=== PATIENT | female | born 1945 | race Caucasian/White ===

== ENCOUNTER → 2016-11-22 | Outpatient (CLI) | payer OTHER, MEDICARE | LOC: BMCIMAGING 09:28 | PROVIDERS: ATTEND Orthopaedic Surgery | DX: M25.552 Pain in left hip (principal) ==

== ENCOUNTER → 2017-01-10 | Outpatient (CLI) | payer OTHER, MEDICARE | LOC: FIMAGING 10:43 | PROVIDERS: ATTEND Family Medicine | DX: Z13.820 Encounter for screening for osteoporosis (principal) ==

== ENCOUNTER → 2017-03-07 | Outpatient (CLI) | payer OTHER, MEDICARE | LOC: BMCIMAGING 09:24 | PROVIDERS: ATTEND Orthopaedic Surgery | DX: M25.552 Pain in left hip (principal) ==

== ENCOUNTER → 2017-04-27 | Outpatient (CLI) | payer OTHER, MEDICARE | LOC: BMCIMAGING 10:34 | PROVIDERS: ATTEND Physician Assistant | DX: Z01.818 Encounter for other preprocedural examination (principal) ==

== ENCOUNTER → 2017-05-09 | Outpatient (CLI) | payer OTHER, MEDICARE | LOC: FIMAGING 10:12 | PROVIDERS: ATTEND Orthopaedic Surgery | DX: Z01.818 Encounter for other preprocedural examination (principal); M16.12 Unilateral primary osteoarthritis, left hip ==

== ENCOUNTER 2017-05-14 07:35 | Inpatient (IN) | payer OTHER, MEDICARE ==
--- NOTE | 2017-05-14 06:52 | PDHPUP ---
History & Physical Update H&P update statement: This history and physical update is based on an assessment of the patient which was completed after admission or registration (within 24 hours), but prior to the surgery/procedure.
--- NOTE | 2017-05-14 06:53 | PDIAF ---
- Diagnosis Diagnosis: left hip djd Code Status: Full Code - Medication Management Discharge Medications: Medications to Continue on Transfer Aspirin [Aspirin 81mg (*)] 81 mg PO DAILY 04/05/16 [Last Taken 04/06/16] Levothyroxine [Synthroid 100 mcg (*)] 100 mcg PO DAILY 04/05/16 [Last Taken 07:00] Melatonin [Melatonin 5 mg] 5 mg PO HS 04/05/16 [Last Taken 04/09/16 21:00] Multivitamins [Multivitamin (*)] 1 each PO DAILY 04/05/16 [Last Taken 04/07/16] amLODIPine BESYLATE [Amlodipine Besylate] 10 mg PO DAILY 04/05/16 [Last Taken 07:00] Ibuprofen [Motrin (*)] 600 mg PO BID #0 04/07/16 [Last Taken 04/06/16] [place]-3 Fatty Acids [Fish Oil 1000 mg (*)] 1,000 mg PO DAILY #0 04/07/16 [Last Taken 04/07/16] Diazepam [Valium 5 MG (*)] 2.5 mg PO DAILY PRN 04/11/17 [Last Taken Unknown] Herbals/Supplements -Info Only 1 ea PO DAILY 04/11/17 [Last Taken Unknown] Simvastatin [Zocor] 20 mg PO DAILY 04/11/17 [Last Taken Unknown] Cholecalciferol Vit D3 [Vitamin D3 2000 units tab (OTC)] 2,000 units PO DAILY [Last Taken Unknown] Discharge Medications: Refer to the Discharge Home Medication list for PRN reason. - Orders Services needed: Physical Therapy Activity/Weight Bearing Restrictions: wbat. anterior hip precautions. daily dressing changes. may shower without bandage. no soaking or immersion. alvaro hose x 2 weeks. f/u at two weeks. seek attn for increasing redness, drainage or discharge. aspirin 325 mg po daily - Follow Up Care Current Providers and Referrals: Mehnaz Mar MD [Primary Care Provider] -
[~2017-05-14 07:35] MED LIST: ROPIVACAINE 0.2% 80 MG, EPINEPHrine 0.2 MG, morphINE 10 MG in BAG 0 ML IU ONE; TRANEXAMIC ACID 1,250 MG in NS 100 ML IV ONE; TRANEXAMIC ACID 3,000 MG in NS 50 ML IRR ONE
[2017-05-14] MEDS ORDERED: CALCIUM CHLORIDE 1 GM/10 ML INJ ONE (08:03)
[2017-05-14] MEDS ORDERED: ceFAZolin 1 GM/5 ML SYR ONE (08:03)
[2017-05-14] MEDS ORDERED: THROMBIN (BOVINE) 5,000 UNIT VIAL TP ONE (08:03)
[2017-05-14] MEDS ORDERED: TEMAZEPAM 15 MG CAP PO PRN (08:31)
[2017-05-14] MEDS ORDERED: FAMOTIDINE 20 MG TAB PO ONE (08:31)
[2017-05-14] MEDS ORDERED: PROMETHAZINE HCL 25 MG SUPPR PR PRN (08:31)
[2017-05-14] MEDS ORDERED: traMADol 50 MG TAB PO PRN (08:31)
[2017-05-14] MEDS ORDERED: ONDANSETRON 4 MG/2 ML VIAL IVP PRN (08:31)
[2017-05-14] MEDS ORDERED: DIPHENOXYLATE/ATROPINE LOMOTIL 1 TAB PO PRN (08:31)
[2017-05-14] MEDS ORDERED: POLYETHYLENE GLYCOL 3350 17 GM PKT PO PRN (08:31)
[2017-05-14] MEDS ORDERED: ONDANSETRON DISINTEGRATING 4 MG TAB PO PRN (08:31)
[2017-05-14] MEDS ORDERED: METOCLOPRAMIDE 10 MG/2 ML VIAL IVP PRN (08:31)
[2017-05-14] MEDS ORDERED: ceFAZolin 2 GM/DEXTROSE 100 ML IV ONE (08:31)
[2017-05-14] MEDS ORDERED: diphenhydrAMINE 25 MG CAP PO PRN (08:31)
[2017-05-14] MEDS ORDERED: BISACODYL 10 MG SUPP PR PRN (08:31)
[2017-05-14] MEDS ORDERED: LACTULOSE 20 GM/30 ML UDCUP PO PRN (08:31)
[2017-05-14] MEDS ORDERED: PROMETHAZINE HCL 25 MG/ML INJ IVP PRN (08:31)
[2017-05-14] MEDS ORDERED: ACETAMINOPHEN 325 MG TAB PO ONE (08:31)
[2017-05-14] MEDS ORDERED: PHARMACY PAIN CONSULT 1 EA MISC PRN (08:31)
[2017-05-14] MEDS ORDERED: LR 1,000 ML IV SCH (08:31)
[2017-05-14] MEDS ORDERED: MAGNESIUM HYDROXIDE 30 ML UDCUP PO PRN (08:31)
[2017-05-14] MEDS ORDERED: DIAZEPAM 5 MG TAB PO PRN (08:31)
--- NOTE | 2017-05-14 08:43 | PDANEPAE ---
ANE History of Present Illness 71 year old female w/ PMHx of previous open heart surgery (AVR), HTN, anxiety, GERD and chronic left hip pain presents for left total hip arthroplasty. ANE Past Medical History - Cardiovascular History Hx Hypertension: Yes Hx Arrhythmias: No Hx Chest Pain: No Hx Coronary Artery / Peripheral Vascular Disease: Yes Hx CHF / Valvular Disease: Yes Hx Palpitations: No Cardiovascular History Comment: AVR. hyperlipidemia. CAD. aneurysm of ascending aorta. sees [facility] in [place] - Pulmonary History Hx COPD: No Hx Asthma/Reactive Airway Disease: No Hx Recent Upper Respiratory Infection: No Hx Oxygen in Use at Home: No Hx Sleep Apnea: No Sleep Apnea Screening Result - Last Documented: Negative - Neurologic History Hx Cerebrovascular Accident: No Hx Seizures: No Hx Dementia: No - Endocrine History Hx Diabetes: No Hypothyroid: Yes Obesity: no Endocrine History Comment: Patient on synthroid - Renal History Hx Renal Disorders: No - Liver History Hx Hepatic Disorders: No - Neurological & Psychiatric Hx Hx Neurological and Psychiatric Disorders: Yes Neurological / Psychiatric History Comment: ANXIETY ON MEDICATION NEEDED - Cancer History Hx Cancer: No - Congenital Disorder History Hx Congenital Disorders: No - GI History GERD: mild Hx Gastrointestinal Disorders: Yes Gastrointestinal History Comment: GERD/REFLUX - Other Health History Other Health History: wears glasses - Chronic Pain History Chronic Pain: Yes (left hip) - Surgical History Prior Surgeries: 04/10/16 lap alize with Ariadna. RIGHT HIP REPLACEMENT 2010. OPEN HEART SURGERY 10/2011 ANE Review of Systems - Exercise capacity Exercise capacity: >=4 METS METS (RN): 4 METS ANE Patient History - Allergies Allergies/Adverse Reactions: benazepril HCl [From Lotrel] Allergy (Severe, Verified 04/11/17 11:12) HEART PALPATATIONS erythromycin base Allergy (Severe, Verified 04/11/17 11:12) NAUSEA, FLU SYMPTOMS nitrofurantoin [From Macrobid] Allergy (Severe, Verified 04/11/17 11:12) MIGRAINES nitrofurantoin macrocrystalline [From Macrobid] Allergy (Severe, Verified 11:12) MIGRAINES Sulfa (Sulfonamide Antibiotics) Allergy (Severe, Verified 04/11/17 11:12) Other-Enter Comments oxybutynin Allergy (Verified 04/11/17 11:12) - Home Medications Home medications: home medication list seen and reviewed Home Medications: Aspirin [Aspirin 81mg (*)] 81 mg PO DAILY 04/05/16 [Last Taken 1 Week Ago] Levothyroxine [Synthroid 100 mcg (*)] 100 mcg PO DAILY 04/05/16 [Last Taken 06:30] Melatonin [Melatonin 5 mg] 5 mg PO HS 04/05/16 [Last Taken 05/08/17] Multivitamins [Multivitamin (*)] 1 each PO DAILY 04/05/16 [Last Taken 1 Week Ago ] amLODIPine BESYLATE [Amlodipine Besylate] 10 mg PO DAILY 04/05/16 [Last Taken 06:30] Ibuprofen [Motrin (*)] 600 mg PO BID #0 04/07/16 [Last Taken 1 Week Ago] [place]-3 Fatty Acids [Fish Oil 1000 mg (*)] 1,000 mg PO DAILY #0 04/07/16 [Last Taken 1 Week Ago] Diazepam [Valium 5 MG (*)] 2.5 mg PO DAILY PRN 04/11/17 [Last Taken 1 Month Ago] Herbals/Supplements -Info Only 1 ea PO DAILY 04/11/17 [Last Taken 1 Week Ago] Simvastatin [Zocor] 20 mg PO DAILY 04/11/17 [Last Taken 1 Day Ago] Cholecalciferol Vit D3 [Vitamin D3 2000 units tab (OTC)] 2,000 units PO DAILY [Last Taken 1 Week Ago] - NPO status NPO Status: no food or drink >8 hours NPO Since - Liquids (Date): 05/13/17 NPO Since - Liquids (Time): 17:00 NPO Since - Solids (Date): 05/13/17 NPO Since - Solids (Time): 17:00 - Anes Hx Anes Hx: no prior problems - Smoking Hx Smoking Status: Never smoked - Family Anes Hx Family Anes Hx: neg - N/A Family Hx Anesthesia Complications: none ANE Labs/Vital Signs - Vital Signs Vital Signs: reviewed preoperatively; see RN documention for details Blood Pressure: 141/84 Heart Rate: 81 Respiratory Rate: 16 O2 Sat (%): 94 Height: 161.29 cm Weight: 64.41 kg ANE Physical Exam - Airway Neck exam: FROM Mallampati Score: Class 2 Mouth exam: normal dental/mouth exam - ASA Status ASA Status: III ANE Anesthesia Plan Anesthesia Plan: MAC, spinal
[2017-05-14] MEDS ORDERED: LR 1,000 ML IV ONE (08:57)
[2017-05-14] MEDS ORDERED: LIDOCAINE 1% 2 ML INJ ID PRN (08:57)
[2017-05-14] MEDS ORDERED: NON-FORMULARY NEW DRUG (Simvastatin [Zocor] 20 MG) PO SCH (09:00)
[2017-05-14] MEDS ORDERED: Herbals/Supplements -Info Only PO SCH (09:00)
[2017-05-14] MEDS ORDERED: MIDAZOLAM 2 MG/2 ML VIAL IVP ONE (09:31)
[2017-05-14] MEDS ORDERED: PROPOFOL 200 MG/20 ML VIAL ONE (09:44)
[2017-05-14] MEDS ORDERED: ONDANSETRON 4 MG/2 ML VIAL ONE (09:55)
[2017-05-14] MEDS ORDERED: DEXAMETHASONE 4 MG/ML VIAL ONE (09:55)
[2017-05-14] MEDS ORDERED: fentaNYL 100 MCG/2 ML INJ ONE (10:34)
[2017-05-14] MEDS ORDERED: HYDROmorphONE/DILAUDID 2 MG/ML INJ ONE (10:57)
[2017-05-14] MEDS ORDERED: HYDROmorphONE/DILAUDID 1 MG/ML SYR IVP PRN (11:06)
[2017-05-14] MEDS ORDERED: OXYCODONE/APAP 5/325 TAB PO PRN (11:06)
[2017-05-14] MEDS ORDERED: fentaNYL 100 MCG/2 ML INJ IVP PRN (11:06)
[2017-05-14] MEDS ORDERED: NALOXONE HCL 0.4 MG/ML INJ IVP PRN (11:06)
[2017-05-14] MEDS ORDERED: SUGAMMADEX SODIUM 200 MG/2 ML VIAL IVP ONE (11:14)
[2017-05-14] MEDS: ACETAMINOPHEN 325 MG TAB PO SCH ×2 (13:41→18:41)
[2017-05-14] MEDS: ATORVASTATIN CALCIUM 10 MG TAB PO SCH (14:03)
[2017-05-14] MEDS: ASPIRIN 325 MG TAB PO SCH ×2 (14:03→21:00)
[2017-05-14] MEDS: TRANEXAMIC ACID 650 MG TAB PO SCH ×2 (14:03→16:42)
[2017-05-14] MEDS: CHOLECALCIFEROL VIT D3 2,000 UNITS TAB/CAP PO SCH (14:04)
[2017-05-14] MEDS: OMEGA-3 FATTY ACIDS 1,000 MG CAP PO SCH (14:04)
[2017-05-14] MEDS: LEVOTHYROXINE 100 MCG TAB PO SCH (14:04)
[2017-05-14] MEDS: MULTIVITAMINS 1 EACH TAB PO SCH (14:04)
[2017-05-14] MEDS: SENNOSIDES/DOCUSATE SODIUM TAB PO SCH ×2 (14:04→19:59)
--- NOTE | 2017-05-14 14:48 | POSTANESTH ---
Post Anesthetic Evaluation Cardiovascular Status: Normal, Stable Respiratory Status: Normal, Stable Level of Consciousness/Mental Status: Can Participate in Eval Pain Control: Adequate, Prn Tx Ordered Nausea/Vomiting Control: Adequate, Prn Tx Ordered Complications Possibly Related to Anesthesia: None Noted
[2017-05-14] MEDS: ceFAZolin 2 GM/DEXTROSE 100 ML IV SCH (18:40)
[2017-05-14] MEDS: FAMOTIDINE 20 MG TAB PO SCH (19:59)
[2017-05-14] MEDS ORDERED: MELATONIN 3 MG TAB PO SCH (21:00)
[2017-05-14] MEDS ORDERED: NON-FORMULARY NEW DRUG (Melatonin [Melatonin 5 Mg] 5 MG) PO SCH (21:00)
[2017-05-15] MEDS: ACETAMINOPHEN 325 MG TAB PO SCH ×3 (00:05→12:32)
[2017-05-15] MEDS: TRANEXAMIC ACID 650 MG TAB PO SCH ×2 (00:07→08:46)
[2017-05-15] MEDS: ceFAZolin 2 GM/DEXTROSE 100 ML IV SCH (03:11)
[2017-05-15 05:00] LABS: HEMATOCRIT 32.8 % (38.0-47.0); HEMOGLOBIN 10.8 g/dL (12.6-16.3)
--- NOTE | 2017-05-15 08:21 | GDS ---
[f rep st] DISCHARGE SUMMARY ADMISSION DIAGNOSIS: Left hip degenerative joint disease. DISCHARGE DIAGNOSIS: Left hip degenerative joint disease. PROCEDURE: Left total hip arthroplasty. HISTORY OF PRESENT ILLNESS: The patient is a 71-year-old woman well known to me for previous right hip replacement. She presents for elective left hip replacement. She understood the risks, benefit s, alternatives, and wished to proceed. Written consent was signed and placed in patient's chart. She has failed all attempts at conservative management. HOSPITAL COURSE: The patient was admitted to the hospital floor after uncomplicated total hip arthr oplasty. She did have slight postoperative nausea. Otherwise, no specific complication. At the [facility] of discharge, she is tolerating an oral diet. Pain is well controlled on oral medicines. She is voiding without difficulty. Her dressing is clean, dry, and intact. She has no calf swelling or t enderness. Negative Homans bilaterally. X-rays are stable and anatomic with concentric reduction a nd no fracture. DISCHARGE ACTIVITY: She has anterior hip precautions. Daily dressing changes. No soaking or immer sarita. FRANCISCO hose x2 weeks and under fall precautions. DISCHARGE MEDICATIONS: Oxycodone 5 mg 1-2 every 4 hours p.r.n. pain, Valium 5 mg 1 p.o. q.8 hours p .r.n. spasm, aspirin 325 mg p.o. daily. FOLLOWUP: Follow up in the orthopedic clinic in 2 weeks. Seek attention for increasing redness, sw elling, drainage, discharge. Copy requested to: Primary Care Physician /[id number]/MODL
[2017-05-15] MEDS: SENNOSIDES/DOCUSATE SODIUM TAB PO SCH (08:46)
[2017-05-15] MEDS: oxyCODONE IR 5 MG TAB PO PRN ×2 (08:46→15:15)
[2017-05-15] MEDS: LEVOTHYROXINE 100 MCG TAB PO SCH (08:46)
[2017-05-15] MEDS: CHOLECALCIFEROL VIT D3 2,000 UNITS TAB/CAP PO SCH (08:46)
[2017-05-15] MEDS: FAMOTIDINE 20 MG TAB PO SCH (08:46)
[2017-05-15] MEDS: ASPIRIN 325 MG TAB PO SCH (08:48)
[2017-05-15] MEDS: ATORVASTATIN CALCIUM 10 MG TAB PO SCH (08:48)
[2017-05-15] MEDS: MULTIVITAMINS 1 EACH TAB PO SCH (08:52)
[2017-05-15 12:29] VITALS: BP 135/64; PULSE 85; RESP 12; TEMP 98.8; O2SAT 92
[2017-05-15] MEDS: OMEGA-3 FATTY ACIDS 1,000 MG CAP PO SCH (13:47)
--- NOTE | 2017-05-15 13:53 | PDIAF ---
- Diagnosis Diagnosis: left hip djd Code Status: Full Code - Medication Management Discharge Medications: Medications to Continue on Transfer Aspirin [Aspirin 81mg (*)] 81 mg PO DAILY 04/05/16 [Last Taken 1 Week Ago] Levothyroxine [Synthroid 100 mcg (*)] 100 mcg PO DAILY 04/05/16 [Last Taken 06:30] Melatonin [Melatonin 5 mg] 5 mg PO HS 04/05/16 [Last Taken 05/08/17] Multivitamins [Multivitamin (*)] 1 each PO DAILY 04/05/16 [Last Taken 1 Week Ago ] amLODIPine BESYLATE [Amlodipine Besylate] 10 mg PO DAILY 04/05/16 [Last Taken 06:30] Ibuprofen [Motrin (*)] 600 mg PO BID #0 04/07/16 [Last Taken 1 Week Ago] [place]-3 Fatty Acids [Fish Oil 1000 mg (*)] 1,000 mg PO DAILY #0 04/07/16 [Last Taken 1 Week Ago] Diazepam [Valium 5 MG (*)] 2.5 mg PO DAILY PRN 04/11/17 [Last Taken 1 Month Ago] Herbals/Supplements -Info Only 1 ea PO DAILY 04/11/17 [Last Taken 1 Week Ago] Simvastatin [Zocor] 20 mg PO DAILY 04/11/17 [Last Taken 1 Day Ago] Cholecalciferol Vit D3 [Vitamin D3 2000 units tab (OTC)] 2,000 units PO DAILY [Last Taken 1 Week Ago] Aspirin [Aspirin 325 mg (*)] 325 mg PO DAILY #0 tab 05/15/17 [Last Taken Unknown ] Diazepam [Valium 5 MG (*)] 5 mg PO Q6HRS PRN #40 tab 05/15/17 [Last Taken Unknown] oxyCODONE IR [Oxycodone Ir (*)] 5 - 10 mg PO Q3HRS PRN #70 tab 05/15/17 [Last Taken Unknown] Discharge Medications: Refer to the Discharge Home Medication list for PRN reason. - Orders Services needed: Physical Therapy, Occupational Therapy Diet Recommendation: no restrictions on diet Diet Texture: Regular Texture Diet Activity/Weight Bearing Restrictions: wbat. anterior hip precautions. daily dressing changes. may shower without bandage. no soaking or immersion. alvaro hose x 2 weeks. f/u at two weeks. seek attn for increasing redness, drainage or discharge. aspirin 325 mg po daily - Follow Up Care Current Providers and Referrals: Mehnaz Mar MD [Primary Care Provider] -
--- NOTE | 2017-05-15 17:17 | ASMTCASEMG ---
Living Arrangements What is your living arrangement? Who do you live Answers: Alone with? Type Of Residence What kind of residence do you live in? Answers: Condo/Townhouse Stairs in Home Environment Answers: Yes Discharge Plan Comments Coordination Status Comments Notes: Pt s/p L JARAD. PT recommending HC. Discussed HC options w/pt - she has had HC in past and thinks it was [facility]. She would like to have them again. Notified [facility] and they are able to accept. Date Signed: 05/15/2017 05:16 PM Electronically Signed By:Ibeth Bernstein
--- NOTE | 2017-05-15 17:18 | ASDISCHSUM ---
Discharge Information Plan Status:Home with Home Health Medically Cleared to Leave:05/15/2017 Discharge Date:05/15/2017 04:34 PM CM D/C Disposition:Home Health Service ADT D/C Disposition:Home Health Service Projected Discharge Date:05/15/2017 04:34 PM Transportation at D/C:Family Discharge Delay Reason: Follow-Up Date:05/15/2017 04:34 PM Discharge Slot: Final Diagnosis: Placement Information Patient Contact Information Contact Name:UGO Relationship:Raffi Address: City: [facility] Phone: [facility]/Zip Code: Email: Financial Information Financial Class: Primary Plan Desc:MEDICARE INPATIENT Primary Plan Number:[id number] Secondary Plan Desc:[employer]/MDR SUPPLEMENT Secondary Plan Number:[id number] Assessment Information BC Initial CM Assessment Living Arrangements What is your living Answers: Alone arrangement? Who do you live with? Type Of Residence What kind of residence do Answers: Condo/Townhouse you live in? Stairs in Home Answers: Yes Environment Discharge Plan Comments Coordination Status Comments Notes: Pt s/p L JARAD. PT recommending HC. Discussed HC options w/pt - she has had HC in past and thinks it was [facility]. She would like to have them again. Notified [facility] and they are able to accept. Date Signed: 05/15/2017 05:16 PM Electronically Signed By:Ibeth Bernstein Intervention Information
--- NOTE | 2017-05-18 07:58 | GOP ---
[f rep st] OPERATIVE REPORT DATE OF OPERATION: 05/14/2017 SURGEON: Serge Sykes MD CHARGE PREPARATION TECHNICIAN: Jun Gage, COMPLIANCE OFFICER, [facility], who was a medical necessity for the entirety of the case. PREOPERATIVE DIAGNOSIS: Left hip degenerative joint disease. POSTOPERATIVE DIAGNOSIS: Left hip degenerative joint disease. PROCEDURE PERFORMED: Left total hip arthroplasty. FINDINGS: SPECIMENS: To Pathology, the femoral head. INDICATIONS: The patient is a 71-year-old woman who has end-stage arthritis to her left hip. She h as clinical radiograph features consistent with this. She has failed all attempts at conservative m anagement. I have, therefore, recommended operative intervention. She understood the risks, benefi ts, alternatives, and wished to proceed. Written consent was signed and placed in patient's chart. DESCRIPTION OF PROCEDURE: The patient was identified in the preanesthesia area. The left hip clear ly demarcated as the operative site with indelible marker. She was given 2 g of Ancef intravenously en route to the operative suite. In the OR, general endotracheal anesthesia was administered. Att ention was turned to the left hip, which was sterilely prepped and draped in the usual fashion. Jahaira ropriate time-out procedure was carried out. Attention was first turned to the right iliac crest. A 2 cm incision was made. Three pins were then placed, and a pelvic reference array affixed. Atten tion was then turned to the left hip. An anterior incision was then made. Thick subcutaneous flaps were elevated. The fascia over the tensor was then opened in a linear fashion. The tensor muscle retracted in a lateral position. The underlying vascular structures were identified, ligated, and c auterized. The rectus elevated off the anterior capsule. Retractors were placed across the medial and superior aspect of the femoral neck. A T was made in the capsule. The retractors were placed i nto an intracapsular position. An acetabular checkpoint was then placed. A bony wedge was withdraw n from the femoral neck, and the head was removed. The remnants of the acetabular labrum were sharp ly excised. The bony landmarks were then entered in the computer in standard fashion. Using the MA KOplasty protocol, a 52 mm reamer was then placed in an opening angle of 40 degrees and anteversion of 20 degrees. A Tritanium acetabular shell was then impacted into the appropriate position using t he MAKOplasty guidance as well. A single 6.5 mm screw was then placed. A 0-degree X3 liner was ayse osvaldo with a 32 mm inner diameter. Attention was then turned to the femur. The femur was delivered t hrough the wound with extension at the table, external rotation, soft tissue releases. The canal wa s identified, opened with a rongeur, and broached to a size 3 stem. Trial reduction was carried out , and fluoroscopic confirmation of the positioning of the components was carried out. A size 3 alden l stem was then impacted and confirmed to be fully seated. Additional trialing was carried out and, ultimately, a final 32 mm +0 mm neck length Biolox head was then selected. This allowed restoratio n of leg lengths. Stability profile was appropriate, with full extension and external rotation to 9 0 degrees under traction, without evidence of instability. The wound was then copiously irrigated w ith pulsatile lavage solution. The deep tissue was instilled with platelet-rich plasma solution and a joint cocktail of ropivacaine, morphine, Toradol, and epinephrine. The wound was closed in layer s using 0 Vicryl, 2-0 Monocryl, and maribel. Sterile dressings were applied. The patient was awake idania, extubated, and taken to recovery room in good, stable condition. TOTAL TOURNIQUET TIME: None. COMPLICATIONS: None. IMPLANTS: The Vanessa Tritanium acetabular shell, size 52 mm, single 6.5 mm cancellous screw, a 0 d egree X3 liner, 32 mm inner diameter Biolox Delta ceramic head, 32 mm +0 mm neck length, and an Acco lade II 132 degree neck angle hip stem, size 3. DISPOSITION: To the recovery room then the floor. She will follow standard total hip recovery. /[id number]/MODL
== END 2017-05-15 16:34 | disposition home health service (06) | DRG 470 ==
LOC: F3N 07:35
PROVIDERS: ADMIT Orthopaedic Surgery; ATTEND Orthopaedic Surgery
PROC: 0SRB04Z Replacement of Left Hip Joint with Ceramic on Polyethylene Synthetic Substitute, Open Approach (ICD-10-PCS; principal; 2017-05-14 09:45)
CPT/HCPCS: 97116-GP; 97161-GP; 97165-GO; 97530-GP; C1713; G8978-GP-CK; G8979-GP-CI; G8987-GO-CI; G8989-GO-CI; J0171; J0690; J1100; J1170; J2250; J2405; J2704; J2795; J3010

== ENCOUNTER → 2017-06-25 | Outpatient (CLI) | payer OTHER, MEDICARE | LOC: BMCIMAGING 08:34 | PROVIDERS: ATTEND Physician Assistant | DX: Z96.642 Presence of left artificial hip joint (principal) ==

== ENCOUNTER → 2017-07-18 | Outpatient (CLI) | payer OTHER, MEDICARE | LOC: BMCIMAGING 12:10 | PROVIDERS: ATTEND Family Medicine | DX: Z12.31 Encounter for screening mammogram for malignant neoplasm of breast (principal) | CPT/HCPCS: G0202 ==

== ENCOUNTER → 2017-08-06 | Outpatient (CLI) | payer OTHER, MEDICARE | LOC: BMCIMAGING 10:37 | PROVIDERS: ATTEND Physician Assistant | DX: Z47.1 Aftercare following joint replacement surgery (principal); Z96.642 Presence of left artificial hip joint ==

== ENCOUNTER → 2017-11-16 | Outpatient (CLI) | payer OTHER, MEDICARE | LOC: BMCIMAGING 10:38 | PROVIDERS: ATTEND Physician Assistant | DX: Z47.1 Aftercare following joint replacement surgery (principal); Z96.642 Presence of left artificial hip joint ==

== ENCOUNTER → 2018-05-22 | Outpatient (CLI) | payer OTHER, MEDICARE | LOC: BMCIMAGING 10:54 | PROVIDERS: ATTEND Orthopaedic Surgery | DX: Z47.1 Aftercare following joint replacement surgery (principal); Z96.642 Presence of left artificial hip joint ==

== ENCOUNTER → 2018-08-01 | Outpatient (CLI) | payer OTHER, MEDICARE | LOC: BMCIMAGING 08:57 | PROVIDERS: ATTEND Family Medicine | DX: Z12.31 Encounter for screening mammogram for malignant neoplasm of breast (principal) ==

== ENCOUNTER → 2019-01-01 | Outpatient (CLI) | payer OTHER, MEDICARE | LOC: BMCIMAGING 09:49 | PROVIDERS: ATTEND Family Medicine | DX: Z13.820 Encounter for screening for osteoporosis (principal); Z96.643 Presence of artificial hip joint, bilateral ==